=== PATIENT | female | born 1970 | race Caucasian/White ===

== ENCOUNTER → 2016-10-13 | Outpatient (CLI) | payer BC ==
[~2016-10-13] MED LIST: LRT5 PO
--- NOTE | 2016-10-14 12:37 | MAMMOGRAPHY REPORT ---
BILATERAL DIGITAL SCREENING MAMMOGRAM TOMOSYNTHESIS WITH CAD: 10/13/2016 CLINICAL HISTORY: Routine screening. Patient has no complaints. TECHNIQUE: Breast tomosynthesis in addition to standard 2D mammography was performed. Current study was also evaluated with a Computer Aided Detection (CAD) system. COMPARISON: Comparison is made to exams dated: 09/25/2015 mammogram, 07/18/2014 mammogram, 04/24/2013 mammogram, and 03/21/2012 mammogram - [facility]. BREAST COMPOSITION: The tissue of both breasts is extremely dense, which lowers the sensitivity of mammography. FINDINGS: There is a 12 mm asymmetry in the far superior and posterior left breast, only seen on th e MLO view that is increasingly prominent. Although this could represent a lymph node, additional s pot compression tomosynthesis views, exaggerated lateral CC views and possibly ultrasound are recomm ended. There are scattered stable coarse and punctate microcalcifications in the breasts. No other suspici ous mass, architectural distortion or cluster of microcalcifications is seen. IMPRESSION: ACR BI-RADS CATEGORY 0: INCOMPLETE EVALUATION: NEED ADDITIONAL IMAGING EVALUATION The increasingly prominent 12 mm asymmetry in the left breast needs additional evaluation. The patient will be called to schedule an appointment. Approximately 10% of breast cancers are not detected with mammography. A negative mammographic repor t should not delay biopsy if a clinically suggestive mass is present. Giulia Car M.D. ay/:10/13/2016 21:55:00 Gold Blower: Dustin ARROYO(Roma)(M), [facility] letter sent: Addl Imaging 0 BI-RADS Code: ACR BI-RADS Category 0: Incomplete Evaluation: Need Additional Imaging Evaluation
== END | disposition home or self-care (01) ==
LOC: C.MAMM 11:46
PROVIDERS: ATTEND Family Medicine
DX: Z12.31 Encounter for screening mammogram for malignant neoplasm of breast (principal); N64.9 Disorder of breast, unspecified

== ENCOUNTER → 2016-10-29 | Outpatient (CLI) | payer BC ==
--- NOTE | 2016-10-29 13:57 | MAMMOGRAPHY REPORT ---
UNILATERAL LEFT DIGITAL DIAGNOSTIC MAMMOGRAM TOMOSYNTHESIS AND TARGETED LEFT ULTRASOUND: 10/29/2016 CLINICAL HISTORY: Callback from screening mammogram for left breast asymmetry. TECHNIQUE: Breast tomosynthesis in addition to standard 2D mammography was performed. Spot gabriel giovanni left MLO 2-D and tomosynthesis images were obtained. COMPARISON: Comparison is made to exams dated: 10/13/2016 mammogram, 09/25/2015 mammogram, 07/18/2014 mammogram, 04/24/2013 mammogram, and 03/21/2012 mammogram - [facility]. BREAST COMPOSITION: The tissue of the left breast is extremely dense, which lowers the sensitivity of mammography. FINDINGS: The previously described asymmetry seen within the left superior posterior breast overlyi ng the pectoralis muscle effaces to a baseline appearance on the additional spot compression view, w ith appearance of this region stable dating back to the 2011 exam. On the tomosynthesis images the asymmetry has the appearance of fibroglandular tissue. No abnormal lymph nodes are seen in this reg ion mammographically. Targeted ultrasound was performed of the left axilla/axillary tail region, in the region of the mamm ographic asymmetry. No suspicious masses or other suspicious sonographic abnormalities are evident. An island of normal-appearing fibroglandular tissue is seen within the left axillary tail region, which likely corresponds with the stable mammographic asymmetry. No adenopathy is evident. IMPRESSION: ACR BI-RADS CATEGORY 2: BENIGN, TARGETED ULTRASOUND ACR BI-RADS CATEGORY 2: BENIGN The left breast asymmetry effaces to a baseline appearance on the additional views, and is benign an d felt to represent normal fibroglandular tissue. There is no mammographic or targeted sonographic evidence of malignancy. A 1 year screening mammogram is recommended. The patient has been verbally notified of the results. Approximately 10% of breast cancers are not detected with mammography. A negative mammographic repor t should not delay biopsy if a clinically suggestive mass is present. Yany Cunningham M.D. ah/:10/29/2016 09:14:48 Surgical Aide: Romina RIDER)(Katie), [facility] letter sent: Normal /2 BI-RADS Code: ACR BI-RADS Category 2: Benign Ultrasound BI-RADS: ACR BI-RADS Category 2: Benign
== END | disposition home or self-care (01) ==
LOC: C.MAMM 08:21
PROVIDERS: ATTEND Family Medicine
DX: N64.89 Other specified disorders of breast (principal)

== ENCOUNTER → 2017-05-26 | Outpatient (CLI) | payer BC | END | disposition home or self-care (01) | LOC: C.PAPS 15:44 | PROVIDERS: ATTEND Family Medicine | DX: Z12.72 Encounter for screening for malignant neoplasm of vagina (principal) ==